=== PATIENT | female | born 1980 | race Caucasian/White ===

== ENCOUNTER 2020-07-23 07:41 | Outpatient (CLI) | payer OTHER, SELFPAY ==
--- NOTE | 2020-07-23 | ECG_ITS ---
Measurements Intervals [place] Rate: 71 P: 8 NC: 152 QRS: 27 QRSD: 91 T: -1 QT: 380 QTc: 413 Interpretive Statements SINUS RHYTHM NORMAL ECG Electronically Signed On 07-23-2020 9:14:26 CDT by Nickolas Zuluaga D.O.
--- NOTE | ~2020-07-23 | XR_ITS ---
XR chest 2V DATE: 07/23/2020 08:49 INDICATION: Kidney living donor evaluation. Preoperative evaluation. TECHNIQUE: PA and lateral views COMPARISON: None FINDINGS: Normal heart size. No hilar or mediastinal enlargement. No pulmonary infiltrate or consolid ation, pleural effusion or pulmonary vascular congestion or pneumothorax. IMPRESSION: Negative chest Reviewed, dictated and finalized at location B. IMPRESSION: Negative chest
[2020-07-23 08:44] LABS: Basophils Percent Auto 0.3 % (0.2-1.2); Eosinophils Absolute Auto 0.1 K/mm3 (0-0.3); Eosinophils Percent Auto 1.4 % (0-4.4); Hematocrit 44.4 % (37.0-47.0); Hemoglobin 15.4 g/dL (12.0-15.0); Immature Granulocyte Absolute 0.02 K/mm3 (0.00-0.031); Immature Granulocyte Percent A 0.3 % (0-0.5); Lymphocytes Absolute Auto 2.17 K/mm3 (0.9-3.2); Lymphocytes Percent Auto 37.5 % (18.3-44.2); Mean Corpuscular HGB Conc 34.7 g/dl (32-36); Mean Corpuscular Hemoglobin 32.4 pg (26-34); Mean Corpuscular Volume 93.3 fl (80-100); Mean Platelet Volume 9.4 fl (7.4-10.4); Monocytes Absolute Auto 0.5 K/mm3 (0.1-0.6); Monocytes Percent Auto 7.8 % (2.6-8.5); Neutrophils Absolute Auto 3.1 K/mm3 (1.3-6.7); Neutrophils Percent Auto 52.7 % (45.5-73.1); Platelet Count Result 191 k/mm3 (150-375); Red Blood Count 4.76 M/mm3 (4.2-5.4); Red Cell Distribution Width 12.3 % (11.5-14.5); White Blood Count 5.8 K/mm3 (4.5-10.0)
[2020-07-23 08:53] LABS: INR 1.1; Prothrombin Time 13.4 Seconds (11.1-14.7)
[2020-07-23 08:54] LABS: Partial Thromboplastin Time 29.3 SECONDS (22.3-36.8)
[2020-07-23 08:56] LABS: Alanine Aminotransferase 22 U/L (4-35); Albumin Level 4.5 g/dL (3.5-5.1); Alkaline Phosphatase 55 U/L (38-126); Anion Gap 11 mmol/L (8-16); Aspartate Amino Transferase 29 U/L (14-36); Bilirubin,Total 0.6 mg/dL (0.2-1.3); Blood Urea Nitrogen 15 mg/dL (7-17); Calcium 9.3 mg/dL (8.4-10.2); Carbon Dioxide 27 mmol/L (22-30); Chloride 105 mmol/L (98-107); Cholesterol 233 mg/dL (0-200); Estimated Glomerular Filt Rate > 60; Glucose 123 mg/dL (65-105); HDL Direct 34 mg/dL; Phosphorus 3.1 mg/dL (2.5-4.5); Potassium 4.1 mmol/L (3.4-5.0); Sodium 143 mmol/L (137-145); Triglycerides 165 mg/dL (<150); Uric Acid 5.2 mg/dL (2.5-7.5)
[2020-07-23 09:00] LABS: Add Urine Microscopic? YES; Appearance Urine Cloudy (Clear); Bacteria Urine Trace /hpf; Bilirubin Urine Negative (Negative); Blood Urine Negative (Negative); Color Urine Yellow (Yellow); Glucose Urine UA Negative (Negative); Ketones Urine Negative (Negative); Leukocyte Esterase Ur Negative LEU/UL (NEGATIVE); Mucus Urine Heavy /lpf; Nitrate Urine Negative (Negative); Protein Urine Negative (Negative); RBC Urine 0-2 /hpf (0-2); Specific Grav Ur 1.023 (1.001-1.035); Squamous Epithelial Cell Urine Moderate /hpf (Few); Urobilinogen Urine Negative mg/dL (<2.0)
[2020-07-23 09:07] LABS: LDL Cholesterol Direct 167 mg/dL
[2020-07-23 09:10] LABS: Creatinine Urine 256.7 mg/dL; Total Protein Urine Random 9 mg/dL
[2020-07-23 09:12] LABS: Beta HCG Quantitative < 2.39 mIU/ML
[2020-07-23 09:36] LABS: HIV 1/2 Ab P24 Ag Result Negative (Negative)
[2020-07-23 12:08] LABS: Hemoglobin A1C 5.6 % (<5.7)
[2020-07-23 13:15] LABS: Hepatitis B Surface Antigen Negative (Negative)
[2020-07-24 06:33] LABS: Rapid Plasma Reagin Non-Reactive (NonReactive)
[2020-07-24 19:54] LABS: Hepatitis B Surface Antigen 0.12 S/C
[2020-07-25 12:10] LABS: Herpes Simplex Type 1 DNA PCR Not Detected (Not Detected); Herpes Simplex Type 2 DNA PCR Not Detected (Not Detected)
[2020-07-26 16:16] LABS: CMV IgM Antibody <30.00 AU/mL (<30.00)
[2020-07-26 18:55] LABS: Hepatitis B DNA PCR <1.00 Log IU/mL; Hepatitis B DNA PCR <10 IU/mL
[2020-07-27 13:19] LABS: EBV Nuclear Ab Antibody >600.00 U/mL (<18.00); EBV Nuclear Ab Interpretation Past; EBV Virus Capsid Ag IgM Ab <36.00 U/mL (<36.00)
[2020-07-27 14:20] LABS: CMV IgG Antibody <0.60 U/mL (<0.60)
[2020-07-27 14:46] LABS: Toxoplasma IgG Antibody <7.20 IU/mL (<7.20)
[2020-07-28 23:57] LABS: NIL 0.01 IU/mL; Quantiferon TB Plus, 1T NEGATIVE (NEGATIVE)
[2020-07-29 20:04] LABS: Hepatitis C RNA, Quant PCR <15 IU/mL
[2020-08-14 12:05] LABS: Reference Lab Test Result Negative
== END 2020-07-23 07:42 | disposition home or self-care (01) ==
DX: Z01.818 Encounter for other preprocedural examination (principal)
CPT/HCPCS: 36415; 71046; 80053; 80061; 81001; 82570; 83036; 84100; 84156; 84550; 84702; 85025; 85610; 85730; 86480; 86592; 86644; 86645; 86664; 86665; 86682; 86703; 86777; 86787; 86850; 86900; 86901; 87340; 87517; 87522; 87529; 93005; G0432

== ENCOUNTER 2020-07-25 08:37 | Outpatient (CLI) | payer OTHER, SELFPAY ==
[2020-07-25 09:07] LABS: Collection Time Urine 24 HOURS
[2020-07-25 09:23] LABS: Total Volume 24 Hour Urine 1500 ml
[2020-07-25 09:28] LABS: Creatinine Clearance Urine 100.3 ml/min (75-125); Creatinine Urine 113.2 mg/dL; Patient Weight 237 Lbs; Total Protein Urine 24 Hr 180 MG/DAY (28-141); Total Protein Urine Random 12 mg/dL
[2020-07-25 09:33] LABS: Sodium 24 Hour Urine 189 mmol/day (40-220); Sodium Urine Random 126 meq/L; Urea Nitrogen 24 Hour Urine 8.6 G/DAY (12-20)
[2020-07-30 18:45] LABS: Microalbumin, Urine 16.7 mcg/min (<20)
== END 2020-07-25 08:38 | disposition home or self-care (01) ==
DX: Z01.818 Encounter for other preprocedural examination (principal)
CPT/HCPCS: 81050; 82043; 82575; 84156; 84300; 84540

== ENCOUNTER 2020-08-06 07:09 | Outpatient (CLI) | payer OTHER, SELFPAY ==
[2020-08-06 07:44] LABS: Glucose 2 Hour PP 121 mg/dL (>=155)
[2020-08-06 09:31] LABS: Glucose 2 Hour PP 189 mg/dL (>=155)
[2020-08-06 10:21] LABS: Glucose 2 Hour PP 168 mg/dL (>=155)
== END 2020-08-06 07:10 | disposition home or self-care (01) ==
DX: Z01.818 Encounter for other preprocedural examination (principal)
CPT/HCPCS: 36415; 82947

== ENCOUNTER → 2021-01-12 15:57 | Outpatient (CLI) | payer OTHER, MEDICAID, SELFPAY ==
--- NOTE | ~2021-01-12 | MM_ITS ---
EXAMINATION: MM screening hannah BI w corie HISTORY: Screening mammogram TECHNIQUE: Craniocaudal and mediolateral oblique 3-D tomosynthesis images were obtained and synthetic 2-D images were generated. CAD analysis was submitted and interpreted. COMPARISON: None, baseline BREAST PARENCHYMAL COMPOSITION: The breasts are heterogeneously dense, which may obscure small masses . FINDINGS: RIGHT BREAST: There is no evidence of suspicious mass, calcification, or architectural distortion to suggest malignancy. LEFT BREAST: There are masses in the anterior/middle third of the outer and upper outer breast 5 cm f rom the nipple and at the 6:00 location in the middle/posterior third of the breast 6 cm from the nip ple. IMPRESSION: 1. Left breast masses. 2. Additional mammographic views and possible breast ultrasound are recommended to evaluate for malig kory and establish a baseline given that this is the first mammographic examination. BI-RADS Category 0: Incomplete: Needs additional imaging evaluation. Reviewed, dictated and finalized at location A. IMPRESSION: 1. Left breast masses. 2. Additional mammographic views and possible breast ultrasound are recommended to evaluate for malignancy and establish a baseline given that this is the fir st mammographic examination. BI-RADS Category 0: Incomplete: Needs additional imaging evaluation.
== END ==
PROVIDERS: Visit Provider Family Medicine
DX: Z12.31 Encounter for screening mammogram for malignant neoplasm of breast (principal); R92.8 Other abnormal and inconclusive findings on diagnostic imaging of breast
CPT/HCPCS: 77063; 77067

== ENCOUNTER → 2021-01-30 08:50 | Outpatient (CLI) | payer OTHER, MEDICAID, SELFPAY ==
--- NOTE | ~2021-01-30 | MMUS_ITS ---
EXAMINATION: MM diagnostic mammo unilat LT, US breast LT complete HISTORY: Left breast masses on 01/12/2021 bilateral digital screening mammogram examination TECHNIQUE: Additional 3-D tomosynthesis images of the left breast were performed and synthetic 2-D im ages were generated. CAD analysis was submitted and interpreted. High resolution complete left breast ultrasound was performed. COMPARISON: 01/12/2021 bilateral digital screening mammogram FINDINGS: MAMMOGRAPHIC FINDINGS: Approximately 12 mm x 13 mass is again noted in the posterior mid to lower left breast. Additional masses are not excluded due to heterogeneously dense stroma, particularly in the upper out er quadrant. Complete left breast ultrasound examination is recommended. ULTRASOUND: 12:00 4 cm from nipple: 4.6 x 7.5 mm simple cyst with through transmission posterior enhancement 1:00 5 cm from nipple: 6.9 x 3.1 x 4.7 mm simple cyst 1:00 5 cm from nipple: 2.4 x 3.2 mm simple cyst 2:00 5 cm from nipple: Parallel circumscribed 4.5 x 14 x 13 mm simple cyst with through transmission posterior enhancement, adjacent 2 x 5 mm simple cyst. Subareolar: Circumscribed parallel hypoechoic 4.8 x 9 x 8 mm lesion, without internal vascularity or posterior shadowing, likely benign 5:00 3 cm from the nipple: Bilobed irregular incompletely circumscribed antiparallel hypoechoic solid mass with internal vascularity, measuring approximately 9 x 13 mm dimension, with some posterior sha dowing; ultrasound-guided biopsy is recommended. 6:00 3 cm from nipple: Parallel circumscribed 2.8 x 3.4 x 4.5 mm sonolucency, likely a cyst 10:00 6 cm from nipple: 2.8 mm rounded sonolucency, likely a small cyst 11:00 5 cm from nipple: 3 x 2 mm probable small cyst and adjacent 2 x 5 mm cyst IMPRESSION: 1. Suspicious mass at 5:00 3 cm from nipple 2. Ultrasound guided biopsy of left breast mass at 5:00 3 cm from nipple is recommended BI-RADS category 4, suspicious findings. Dr. Leonardo left a voicemail message at the physician's office at [phone] with the results of exami nation and the ultrasound-guided biopsy recommendation for the left breast 5:00 lesion on 02/09/2021 a t 1023 hours. Reviewed, dictated and finalized at location A. IMPRESSION: 1. Suspicious mass at 5:00 3 cm from nipple 2. Ultrasound guided biopsy of left breast mass at 5:00 3 cm from nipple is rec ommended BI-RADS category 4, suspicious findings[address] Dr[address] Leonardo left a voicemail message at the physician's office at [phone] wit h the results of examination and the ultrasound-guided biopsy recommendation fo r the left breast 5:00 lesion on 02/09/2021 at 1023 hours. IMPRESSION: 1. Suspicious mass at 5:00 3 cm from nipple 2. Ultrasound guided biopsy of left breast mass at 5:00 3 cm from nipple is rec ommended BI-RADS category 4, suspicious findings. Dr. Leonardo left a voicemail message at the physician's office at [phone] wit h the results of examination and the ultrasound-guided biopsy recommendation fo r the left breast 5:00 lesion on 02/09/2021 at 1023 hours.
== END ==
PROVIDERS: PCP Family Medicine; Visit Provider Physician Assistant
DX: R92.8 Other abnormal and inconclusive findings on diagnostic imaging of breast (principal)
CPT/HCPCS: 76641; 77065

== ENCOUNTER 2021-02-19 08:01 | Outpatient (CLI) | payer OTHER, MEDICAID, SELFPAY ==
--- NOTE | ~2021-02-19 | US_ITS ---
EXAMINATION: US GUIDED NEEDLE BIOPSY DATE: 02/19/2021 09:39 CDT INDICATION: Left breast 5:00 breast mass TECHNIQUE AND FINDINGS: The risks and potential benefits of the procedure were discussed with the patient, and written inform ed consent was obtained. Timeout procedure was performed. After sterile preparation of the left breas t, 1% lidocaine was utilized for local anesthesia. A 14G spring-loaded biopsy gun needle was advanced to the edge of the region of interest from a super olateral approach utilizing sonographic guidance. A total of 4 tissue core samples were obtained thr ough the lesion. An Inrad tissue marker clip was then placed at the biopsy site. Hemostasis was achi eved. A sterile bandage was applied. The patient tolerated procedure well and there was no evidence of immediate complication. The patien t was given verbal instructions prior to departing from the department. A two view mammogram was perf ormed to document tissue marker clip placement. The tissue samples were submitted to surgical patholo gy for histologic analysis. IMPRESSION: 1. Successful ultrasound guided biopsy of left 5:00 breast mass with biopsy marker placement. Please refer to pathology report for histologic analysis. Reviewed, dictated and finalized at Location A. Reviewed, dictated and finalized at location A. IMPRESSION: 1. Successful ultrasound guided biopsy of left 5:00 breast mass with biopsy ma rker placement. Please refer to pathology report for histologic analysis.
--- NOTE | ~2021-02-19 | MM_ITS ---
MM post biopsy invasive LT DATE: 02/19/2021 09:05 INDICATION: Post ultrasound-guided breast biopsy mammogram TECHNIQUE: Digital ML and CC views of left breast following ultrasound-guided biopsy of 5:00 left camila ast mass COMPARISON: 01/12/2021 bilateral digital screening mammogram 01/30/2021 diagnostic left digital mammogram and complete left breast ultrasound FINDINGS: There is a ribbon biopsy marker at the posterior aspect of the previously reported mass in the posterior lower inner quadrant of the left breast at approximately 5:00-6:00 region. IMPRESSION: Status post ultrasound-guided biopsy of posterior 5:00 breast mass Reviewed, dictated and finalized at Location A. Reviewed, dictated and finalized at location A.
== END 2021-02-19 08:02 | disposition home or self-care (01) ==
PROVIDERS: PCP Family Medicine; Visit Provider Physician Assistant
DX: N63.20 Unspecified lump in the left breast, unspecified quadrant (principal); R92.8 Other abnormal and inconclusive findings on diagnostic imaging of breast
CPT/HCPCS: 19083; 88305; A4648

== ENCOUNTER → 2021-02-20 02:30 | Outpatient (CLI) | payer OTHER, MEDICAID, SELFPAY ==
[2021-02-20 19:12] LABS: SARS-CoV-2 RNA PCR Negative
== END ==
PROVIDERS: PCP Family Medicine; Visit Provider Internal Medicine Gastroenterology
DX: Z01.812 Encounter for preprocedural laboratory examination (principal); Z20.822 Contact with and (suspected) exposure to COVID-19
CPT/HCPCS: C9803; U0003; U0005

== ENCOUNTER 2021-02-23 02:26 | Day surgery (SDC) | payer OTHER, MEDICAID, SELFPAY ==
[2021-02-17 11:20] VITALS: BMI 32.1
[2021-02-23 08:24] VITALS: BP 121/82; PULSE 69; RESP 18; TEMP 36.3; O2SAT 100; BMI 31.6
--- NOTE | 2021-02-23 08:38 | WPDANESEPPF ---
Anes - Initial Pre Proc Eval Procedure: Operation Date: 02/23/21 09:30 Proposed Procedures p Colonoscopy - Destin Linton MD Date/Time: 02/23/21 08:38 Surgeon: Destin Linton MD Pre Op Diagnosis: melena Patient Data Age: 40 Gender: F Height: 5 ft 11 in Weight: 102.7 kg Last Vital Signs Temp 36.3 C L 02/23/21 08:24 Pulse 69 02/23/21 08:24 Resp 18 02/23/21 08:24 BP 121/82 02/23/21 08:24 Pulse Ox 100 02/23/21 08:24 Allergies Allergy/AdvReac Type Severity Reaction Status Date / Time penicillin G Allergy Mild unknown Verified 02/23/21 08:20 Penicillins Allergy Mild unknown Verified 02/17/21 11:18 rizatriptan AdvReac Severe bloody Verified 02/17/21 11:18 diarrhea Home Medications Medication Instructions Recorded Confirmed Type dextroamphetamine-amphetamine ER 20 mg PO BID #60 cap 09/11/20 02/23/21 Rx 20 mg 24hr capsule,extend release ubrogepant 50 mg tablet 50 mg PO ONCE #10 tablet 02/12/21 02/23/21 Rx Patient hx anesthesia problems: none Family hx anesthesia problems: none PMFSH Past Medical History Medical History ADD (attention deficit disorder) Elevated cholesterol with elevated triglycerides History of methamphetamine abuse Slow transit constipation Surgical History Surgical History Hx of section x3 Hx of tubal ligation Family History Family History Mother Diabetes mellitus Hypertension Family history of cardiovascular disease Grandparent Diabetes mellitus Hypertension Family history of malignant neoplasm Father Chronic kidney failure Social History Social History Social History: Smoking packs per day: 1 Smoking cigarettes per day: 20.0 Smoking status: Current every day smoker Tobacco type: e-cigarettes/vaping Second hand tobacco smoke exposure: Yes Smoking end date: 03/24/20 Additional smoking assessment comments: Pt vapes now Alcohol intake: never Substance use: never Substance use type: does not use Gender identity (if verbalized by the patient): Female Anes - Eval Final PreProcedure Day of Procedure 02/23/21 08:38 Patient weight: obese Heart: regular rate and rhythm Lungs: clear to auscultation Airway: Mallampati scale class II Neurological: alert and oriented Last oral intake: >/= 8 hours ASA classification: II Emergent: no Anesthetic plan: proceed Anesthesia type and monitoring: general GIVS and standard monitoring Informed Consent: The patient's anesthetic plan and its attendant risks and benefits were discussed with the patient/family/POA. Questions were solicited and answers provided to the satisfaction of the patient/family/POA.
[2021-02-23] MEDS: LACTATED RINGERS 1,000 ML 150 ML IV CONT (08:39)
--- NOTE | 2021-02-23 08:51 | PM.HPGS ---
History of Present Illness History of Present Illness Consent: Risks, benefits, and alternatives have been discussed and questions answered. Patient agrees to proceed with procedure. Chief complaint: melena Narrative: Roseanna Rodriguez is a 40 year old female with intermittent blood in stools, never had a colonoscopy Review of Systems Constitutional: Constitutional: Denies headache(s) and Denies weakness Eyes: Eyes: Denies blurry vision ENT: Reports Normal hearing present, Denies headache(s) and Denies neck pain Cardiovascular: Cardiovascular: Denies chest pain and Denies dyspnea Respiratory: Respiratory: Denies dyspnea Gastrointestinal: Gastrointestinal: Reports no additional gastrointestinal complaints Genitourinary: Genitourinary: Denies dysuria Musculoskeletal: Musculoskeletal: Denies neck pain Integumentary/Breasts: Skin/Breast: Denies dry skin Neurologic: Reports Normal hearing present, Denies headache(s) and Denies weakness Psychiatric: Psychiatric: Denies anxiety Endocrine: Endocrine: Denies change in body appearance Hematologic/Lymphatic: Hematologic/Lymphatic: Denies easy bleeding Allergic/Immunologic: Allergic/Immunologic: Denies urticaria PMFSH Past Medical History Medical History ADD (attention deficit disorder) Elevated cholesterol with elevated triglycerides History of methamphetamine abuse Slow transit constipation Surgical History Surgical History Hx of section x3 Hx of tubal ligation Family History Family History Mother Diabetes mellitus Hypertension Family history of cardiovascular disease Grandparent Diabetes mellitus Hypertension Family history of malignant neoplasm Father Chronic kidney failure Social History Social History Social History: Smoking packs per day: 1 Smoking cigarettes per day: 20.0 Smoking status: Current every day smoker Tobacco type: e-cigarettes/vaping Second hand tobacco smoke exposure: Yes Smoking end date: 03/24/20 Additional smoking assessment comments: Pt vapes now Alcohol intake: never Substance use: never Substance use type: does not use Gender identity (if verbalized by the patient): Female Meds Home Medications and Allergies Home Medications Medication Instructions Recorded Confirmed Type dextroamphetamine-amphetamine ER 20 mg PO BID #60 cap 09/11/20 02/23/21 Rx 20 mg 24hr capsule,extend release ubrogepant 50 mg tablet 50 mg PO ONCE #10 tablet 02/12/21 02/23/21 Rx Allergies Allergy/AdvReac Type Severity Reaction Status Date / Time penicillin G Allergy Mild unknown Verified 02/23/21 08:20 Penicillins Allergy Mild unknown Verified 02/17/21 11:18 rizatriptan AdvReac Severe bloody Verified 02/17/21 11:18 diarrhea Vital Signs Vital Signs - 24 hr 02/23/21 08:24 Temperature 97.4 F L Pulse Rate 69 Respiratory Rate 18 Blood Pressure 121/82 Pulse Oximetry 100 Exam Const: General: comfortable and no acute distress HENMT: General nose exam: Normal nares present Eyes: General: appearance normal, both eyes and all related structures Neck: Neck: no JVD Resp: Auscultation: clear to auscultation bilaterally Cardio: Rate: regular rate Rhythm: regular rhythm GI: Inspection: non-distended GI Palp: Yes Soft to palpation Skin: General skin exam: normal color Neuro: General: gait normal Speech: normal speech Extrem: General: normal to inspection Psych: Mental Status: mental status grossly normal Assessment and Plan Assessment and plan (1) Bloody stool: Code(s): K92.1 - Melena Status: Acute Assessment and Plan: colonoscopy
[2021-02-23 09:12] VITALS: BP 105/57; PULSE 66; RESP 18; O2SAT 100
[2021-02-23 09:22] VITALS: BP 117/68; PULSE 73; RESP 23; O2SAT 99
[2021-02-23 09:32] VITALS: BP 106/80; PULSE 75; RESP 26; O2SAT 99
== END 2021-02-23 09:41 | disposition home or self-care (01) ==
PROVIDERS: PCP Family Medicine; Visit Provider Internal Medicine Gastroenterology
PROC: 0DJD8ZZ Inspection of Lower Intestinal Tract, Via Natural or Artificial Opening Endoscopic (ICD-10-PCS; CPT 45378; principal; 2021-02-23 09:30)
DX: K92.1 Melena (principal); K57.30 Diverticulosis of large intestine without perforation or abscess without bleeding; K51.20 Ulcerative (chronic) proctitis without complications; K64.8 Other hemorrhoids; F98.8 Other specified behavioral and emotional disorders with onset usually occurring in childhood and adolescence; E78.00 Pure hypercholesterolemia, unspecified; E78.1 Pure hyperglyceridemia; F17.290 Nicotine dependence, other tobacco product, uncomplicated; E66.9 Obesity, unspecified; Z68.31 Body mass index [BMI] 31.0-31.9, adult; K62.89 Other specified diseases of anus and rectum
CPT/HCPCS: 45380; 88305; C9803; J2704; J7120; U0003; U0005

== ENCOUNTER 2022-07-28 07:29 | Outpatient (CLI) | payer OTHER, MEDICAID, SELFPAY ==
[2022-07-28 08:01] LABS: Alanine Aminotransferase 22 U/L (6-35); Albumin Level 4.5 g/dL (3.5-5.1); Alkaline Phosphatase 52 U/L (38-126); Anion Gap 8 mmol/L (8-16); Aspartate Amino Transferase 25 U/L (14-36); Bilirubin,Total 1.1 mg/dL (0.2-1.3); Blood Urea Nitrogen 13 mg/dL (7-17); Calcium 8.9 mg/dL (8.4-10.2); Carbon Dioxide 26 mmol/L (22-30); Chloride 105 mmol/L (98-107); Cholesterol 224 mg/dL (0-200); Estimated Glomerular Filt Rate > 60; Glucose 135 mg/dL (65-110); HDL Direct 40 mg/dL; Sodium 139 mmol/L (137-145); Triglycerides 186 mg/dL (<150)
[2022-07-28 08:03] LABS: Basophils Percent Auto 0.4 % (0.2-1.2); Eosinophils Absolute Auto 0.1 K/mm3 (0-0.3); Eosinophils Percent Auto 1.8 % (0-4.4); Hematocrit 42.8 % (37.0-47.0); Hemoglobin 14.7 g/dL (12.0-15.0); Immature Granulocyte Absolute 0.02 K/mm3 (0.00-0.031); Immature Granulocyte Percent A 0.4 % (0-0.5); Lymphocytes Percent Auto 34.2 % (18.3-44.2); Mean Corpuscular HGB Conc 34.3 g/dl (32-36); Mean Corpuscular Hemoglobin 32.2 pg (26-34); Mean Corpuscular Volume 93.9 fl (80-100); Mean Platelet Volume 9.4 fl (7.4-10.4); Monocytes Absolute Auto 0.5 K/mm3 (0.1-0.6); Monocytes Percent Auto 8.6 % (2.6-8.5); Neutrophils Percent Auto 54.6 % (45.5-73.1); Platelet Count Result 169 k/mm3 (150-375); Red Blood Count 4.56 M/mm3 (4.2-5.4); Red Cell Distribution Width 12.6 % (11.5-14.5); White Blood Count 5.6 K/mm3 (4.5-10.0)
[2022-07-28 08:12] LABS: LDL Cholesterol Direct 149 mg/dL
[2022-08-01 10:12] LABS: ANA Cascade Screen Negative (Negative)
== END 2022-07-28 07:30 | disposition home or self-care (01) ==
LOC: ANHLAB 07:32
PROVIDERS: PCP Family Medicine; Visit Provider Physician Assistant
DX: M25.521 Pain in right elbow (principal); M25.522 Pain in left elbow; E78.2 Mixed hyperlipidemia; Z68.33 Body mass index [BMI] 33.0-33.9, adult; F98.8 Other specified behavioral and emotional disorders with onset usually occurring in childhood and adolescence; G43.909 Migraine, unspecified, not intractable, without status migrainosus
CPT/HCPCS: 36415; 80053; 80061; 83036; 84443; 85025; 86038

== ENCOUNTER → 2023-02-10 13:14 | Outpatient (CLI) | payer OTHER, SELFPAY ==
--- NOTE | ~2023-02-10 | MM_ITS ---
EXAMINATION: MM screening hannah BI w corie HISTORY: Screening mammogram TECHNIQUE: Craniocaudal and mediolateral oblique 3-D tomosynthesis images were obtained and synthetic 2-D images were generated. CAD analysis was submitted and interpreted. COMPARISON: 01/30/2021, 01/12/2021 BREAST PARENCHYMAL COMPOSITION: The breasts are heterogeneously dense, which may obscure small masses . FINDINGS: There are stable, obscured left breast masses including one in the lower breast with interv al biopsy change. No suspicious mass, calcification, or architectural distortion are identified in ei ther breast to suggest malignancy. There has been no suspicious interval change. IMPRESSION: 1. No mammographic evidence of malignancy. 2. Recommend routine screening mammography in one year. BI-RADS Category 2: Benign finding(s). Reviewed, dictated and finalized at location A.
== END ==
PROVIDERS: PCP Family Medicine; Visit Provider Nurse Practitioner Gerontology
DX: Z12.31 Encounter for screening mammogram for malignant neoplasm of breast (principal)
CPT/HCPCS: 77063; 77067

== ENCOUNTER 2024-02-20 12:20 | Outpatient (CLI) | payer OTHER, SELFPAY ==
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
== END 2024-02-20 12:21 | disposition home or self-care (01) ==
PROVIDERS: PCP Family Medicine; Visit Provider Family Medicine
DX: S13.9XXA Sprain of joints and ligaments of unspecified parts of neck, initial encounter (principal); V89.2XXA Person injured in unspecified motor-vehicle accident, traffic, initial encounter; M51.36 Other intervertebral disc degeneration, lumbar region
CPT/HCPCS: 72040; 72110

== ENCOUNTER 2024-09-07 08:12 | Outpatient (CLI) | payer OTHER, SELFPAY ==
[2024-09-07 08:32] LABS: Basophils Percent Auto 0.4 % (0.2-1.2); Eosinophils Absolute Auto 0.1 K/mm3 (0-0.3); Eosinophils Percent Auto 3.1 % (0-4.4); Hematocrit 41.1 % (37.0-47.0); Hemoglobin 14.3 g/dL (12.0-15.0); Immature Granulocyte Absolute 0.01 K/mm3 (0.00-0.031); Immature Granulocyte Percent A 0.2 % (0-0.5); Lymphocytes Absolute Auto 1.94 K/mm3 (0.9-3.2); Lymphocytes Percent Auto 42.4 % (18.3-44.2); Mean Corpuscular HGB Conc 34.8 g/dl (32-36); Mean Corpuscular Hemoglobin 32.1 pg (26-34); Mean Corpuscular Volume 92.2 fl (80-100); Mean Platelet Volume 9.1 fl (7.4-10.4); Monocytes Absolute Auto 0.4 K/mm3 (0.1-0.6); Monocytes Percent Auto 8.5 % (2.6-8.5); Neutrophils Absolute Auto 2.1 K/mm3 (1.3-6.7); Neutrophils Percent Auto 45.4 % (45.5-73.1); Platelet Count Result 152 k/mm3 (150-375); Red Blood Count 4.46 M/mm3 (4.2-5.4); White Blood Count 4.6 K/mm3 (4.5-10.0)
[2024-09-07 08:47] LABS: Alanine Aminotransferase 14 U/L (6-35); Albumin Level 4.2 g/dL (3.5-5.1); Alkaline Phosphatase 60 U/L (38-126); Anion Gap 6 mmol/L (4-12); Aspartate Amino Transferase 23 U/L (14-36); Bilirubin,Total 0.7 mg/dL (0.2-1.3); Blood Urea Nitrogen 14 mg/dL (7-17); Calcium 8.9 mg/dL (8.4-10.2); Carbon Dioxide 29 mmol/L (22-30); Chloride 104 mmol/L (98-107); Cholesterol 214 mg/dL (0-200); Estimated Glomerular Filt Rate > 60; Glucose 111 mg/dL (65-110); HDL Direct 46 mg/dL; Potassium 4.4 mmol/L (3.4-5.0); Sodium 139 mmol/L (137-145); Triglycerides 160 mg/dL (<150)
[2024-09-07 09:00] LABS: LDL Cholesterol Direct 140 mg/dL
[2024-09-07 09:19] LABS: Thyroid Stimulating Hormone 0.982 uIU/mL (0.465-4.680)
[2024-09-07 09:30] LABS: Hemoglobin A1C 5.9 % (<5.7)
== END 2024-09-07 08:13 | disposition home or self-care (01) ==
LOC: ANHLAB 08:13
PROVIDERS: PCP Family Medicine; Visit Provider Family Medicine
DX: Z00.00 Encounter for general adult medical examination without abnormal findings (principal)
CPT/HCPCS: 36415; 80053; 80061; 83036; 84443; 85025

== ENCOUNTER 2025-02-28 14:45 | Outpatient (CLI) | payer OTHER, MEDICAID, SELFPAY ==
--- NOTE | ~2025-02-28 | MM_ITS ---
CORRECTED REPORT corrected examination description to MM screening mammo BI w corie [facility] [place]04[place]25 This report was recreated on 03/04/25. Original report was EXAMINATION: MM screening mammo BI w corie HISTORY: Screening TECHNIQUE: Craniocaudal and mediolateral oblique 3-D tomosynthesis images were obtained and synthetic 2-D images were generated. CAD analysis was submitted and interpreted. COMPARISON: Comparison to multiple prior studies sequentially, with oldest reviewed study dated 01/12/2021. BREAST PARENCHYMAL COMPOSITION: Dense: The breasts are extremely dense, which lowers the sensitivity of mammography. FINDINGS: There is no evidence of suspicious mass, calcification, or architectural distortion to suggest malignancy in either breast. There has been no suspicious interval change. IMPRESSION: 1. No mammographic evidence of malignancy. 2. Recommend routine screening mammography in one year. BI-RADS Category 1: Negative Reviewed, dictated and finalized at location A. MTDD
--- OUTSIDE RECORDS SUMMARY | 2025-02-28 14:47 | XMS_ITS | Clinical Summary ---
Author Organization [facility] Address [address] [place] [address] Care Team Providers Care Brazing Machine Tender Name Role Phone Raheem Veloz MD Primary Care Provider Source Comments [facility],non-[facility] Affiliates and Associated Physician Practices is amultiple site organization consisting of ambulatory clinics and hospital sitesin [place], [place], [place] and [place]. This disclosure is being madepursuant to the Care Everywhere program and may not contain all information available regarding this patient. Last updated 18.[facility] Social History Tobacco Use Types Packs/Day Years Used Date Smoking Tobacco: Never Assessed Comments Unknown Sex and Gender Information Value Date Recorded Sex Assigned at Not on file Legal Sex Female 8:07 AM CDT Gender Identity Not on file Sexual Orientation Not on file Last Filed Vital Signs Vital Sign Reading Time Taken Comments Blood Pressure - - Pulse - - Temperature - - Respiratory Rate - - Oxygen Saturation - - Inhaled Oxygen Concentration - - Weight 93.4 kg (206 lb) 06/01/2016 1:00 PM CDT Height 175.3 cm (5' 9 ) 06/01/2016 1:00 PM CDT Body Mass Index 30.42 06/01/2016 1:00 PM CDT Plan of Treatment Health Maintenance Due Date Last Done Comments LIPID TESTING 1980 MAMMOGRAM 1980 HIV SCREENING 1995 HEPATITIS C SCREENING 11/17/1998 DTAP/TDAP/TD VACCINES (1 - Tdap) 1999 HEPATITIS B VACCINE (1 of 3 - 19+ 3-dose series) 1999 COVID-19 VACCINE (2023-2 5 season) 2024 DEPRESSION SCREENING 10/24/2024 INFLUENZA VACCINE (Season Ended) 2025 ZOSTER VACCINE (1 of 2) 2030 HIB VACCINE Aged Out No longer eligi ble based on patient's age to complete this topic HPV VACCINE Aged Out No longer eligi ble based on patient's age to complete this topic MENINGOCOCCAL (Group B) VACC INE SHARED DECISION-MAKING Aged Out No longer eligibl e based on patient's age to complete this topic MENINGOCOCCAL GROUPS A/C/Y/W VACCINE Aged Out No longer eligible b ased on patient's age to complete this topic PNEUMOCOCCAL VACCINE Aged Out No long er eligible based on patient's age to complete this topic Insurance MEDICAID - OUT OF [facility] Care Teams Brazing Machine Tender Relationship Specialty Start Date End Date Raheem Veloz MD [address], [place] [phone] PCP - General Internal Medicine 05/20/16
== END 2025-02-28 14:46 | disposition home or self-care (01) ==
PROVIDERS: PCP Family Medicine; Visit Provider Family Medicine
DX: Z12.31 Encounter for screening mammogram for malignant neoplasm of breast (principal)
CPT/HCPCS: 77063; 77067

== ENCOUNTER 2025-09-30 08:49 | Outpatient (CLI) | payer OTHER, MEDICAID, SELFPAY ==
[2025-09-30 09:09] LABS: Hematocrit 39.7 % (37.0-47.0); Hemoglobin 13.7 g/dL (12.0-15.0); Immature Granulocyte Percent A 0.3 % (0-0.5); Lymphocytes Absolute Auto 2.00 K/mm3 (0.9-3.2); Mean Corpuscular HGB Conc 34.5 g/dl (32-36); Mean Corpuscular Hemoglobin 31.9 pg (26-34); Mean Corpuscular Volume 92.5 fl (80-100); Nucleated Red Blood Cells Absolute Auto 0.000 K/mm3 (0.0-0.012); Nucleated Red Blood Cells Perc 0.0 % (0.0-0.2); Platelet Count Result 176 k/mm3 (150-375); Red Blood Count 4.29 M/mm3 (4.2-5.4); White Blood Count 6.0 K/mm3 (4.5-10.0)
[2025-09-30 09:31] LABS: Alanine Aminotransferase 22 U/L (6-35); Albumin Level 4.2 g/dL (3.5-5.1); Alkaline Phosphatase 55 U/L (38-126); Anion Gap 4 mmol/L (4-12); Aspartate Amino Transferase 33 U/L (14-36); Bilirubin,Total 0.9 mg/dL (0.2-1.3); Blood Urea Nitrogen 14 mg/dL (7-17); Calcium 9.0 mg/dL (8.4-10.2); Carbon Dioxide 29 mmol/L (22-30); Chloride 106 mmol/L (98-107); Cholesterol 237 mg/dL (0-200); Estimated Glomerular Filt Rate > 60; Glucose 142 mg/dL (65-110); HDL Direct 45 mg/dL; Potassium 3.8 mmol/L (3.4-5.0); Sodium 139 mmol/L (137-145); Total Protein 7.2 g/dL (6.3-8.2); Triglycerides 187 mg/dL (<150)
[2025-09-30 09:37] LABS: Hemoglobin A1C 6.1 % (<5.7)
[2025-09-30 10:01] LABS: Thyroid Stimulating Hormone Reflex 0.693 uIU/mL (0.465-4.68)
== END 2025-09-30 08:50 | disposition home or self-care (01) ==
LOC: ANHLAB 08:51
PROVIDERS: PCP Family Medicine
DX: Z00.00 Encounter for general adult medical examination without abnormal findings (principal); R73.03 Prediabetes; E66.9 Obesity, unspecified; Z68.33 Body mass index [BMI] 33.0-33.9, adult
CPT/HCPCS: 36415; 80053; 80061; 83036; 84443; 85025